=== PATIENT | female | born 1950 | race Caucasian/White ===

== ENCOUNTER 2020-09-16 06:04 | Emergency (ER) | payer MEDICAID ==
[~2020-09-16] VITALS: Ht 152.4 cm; Wt 61.0 kg
[2020-09-16] MEDS ORDERED: ACETAMINOPHEN WITH CODEINE 300/30MG TABLET PO ONE (07:45)
[2020-09-16] MEDS ORDERED: IBUP-2028 MT (09:14)
[2020-09-16] MEDS ORDERED: T3 PO (09:14)
[2020-09-16 11:00] VITALS: BP 193/97
[2020-09-16] MEDS ORDERED: CLONIDINE 0.1MG TABLET PO ONE (11:15)
== END 2020-09-16 11:25 | disposition home or self-care (01) ==
LOC: ER 06:09
DX: M25.552 Pain in left hip (principal); M25.551 Pain in right hip; I10 Essential (primary) hypertension; W01.0XXA Fall on same level from slipping, tripping and stumbling without subsequent striking against object, initial encounter; Y93.9 Activity, unspecified; Y92.9 Unspecified place or not applicable
CPT/HCPCS: 72170; 93005; 99285